=== PATIENT | male | born 2000 | race Caucasian/White ===

== ENCOUNTER → 2022-10-06 | Outpatient (CLI) | payer OTHER ==
--- NOTE | 2022-10-06 08:11 | XR ---
EXAMINATION TYPE: XR abdomen 1V DATE OF EXAM: 10/06/2022 7:49 AM INDICATION: Patient age:Male; 21 years old; Reason for study: R10.31 RLQ Abdominal pain; COMPARISON: None. TECHNIQUE: One radiographic view of the abdomen was obtained. FINDINGS: The bowel gas pattern is nonspecific without dilated loops of small or large bowel. There i s no evidence for organomegaly or pneumoperitoneum. The osseous structures are intact. No abnormal calcifications are present. Fecal material and gas are demonstrated throughout the colon and rectum. IMPRESSION: Nonspecific bowel gas pattern without radiographic evidence for acute process.
== END | disposition home or self-care (01) ==
LOC: RADXRMAIN 07:31
PROVIDERS: ATTEND Nurse Practitioner Family
DX: R10.31 Right lower quadrant pain (principal)
CPT/HCPCS: 74018

== ENCOUNTER → 2022-10-18 | Outpatient (CLI) | payer OTHER ==
--- NOTE | 2022-10-18 17:02 | US ---
EXAMINATION TYPE: US abdomen comp/pelvis limited DATE OF EXAM: 10/18/2022 COMPARISON: NONE CLINICAL INDICATION: Male, 21 years old with history of R10.31 RLQ ABD PAIN; EXAM MEASUREMENTS: Liver Length: 12.0 cm Gallbladder Wall: 0.2 cm CBD: 0.2 cm Spleen: 12.6 cm Right Kidney: 12.7 x 4.1 x 5.3 cm Left Kidney: 11.3 x 5.8 x 5.9 cm Pancreas: Obscured by bowel gas Liver: wnl Gallbladder: No stones seen CBD: wnl Spleen: wnl Right Kidney: No hydronephrosis or masses seen Left Kidney: No hydronephrosis or masses seen Upper IVC: wnl Abd Aorta: obscured proximally, otherwise wnl. Bladder: wnl RLQ scanned , area of pain, no definite abnormality noted. No obvious hernia seen with valsalva maneu don. IMPRESSION: Suboptimal evaluation of the pancreas otherwise unremarkable study. No obvious hernia see n in the right lower quadrant at site of pain.
== END | disposition home or self-care (01) ==
LOC: RADUSWWP 15:33
PROVIDERS: ATTEND Family Medicine
DX: R10.31 Right lower quadrant pain (principal)
CPT/HCPCS: 76700; 76857